=== PATIENT | female | born 1975 | race African-American/Black ===

== ENCOUNTER 2017-12-25 14:53 | Emergency (ER) | payer MEDICAID, OTHER ==
--- NOTE | 2017-12-25 22:13 | Emergency Room Report ---
History of Present Illness General Chief Complaint: To Be Triaged Present Illness HPI Patient left without being seen. Patient History Past Medical History: see triage record Reviewed Nursing Documentation: PMH: Agreed; PSxH: Agreed Review of Systems All Other Systems: negative except mentioned in HPI Medical Decision Making PA Attestation Dr. Suarez is my supervising Physician whom patient management has been discussed with. Diagnostic Impression: Primary Impression: Patient left without being seen ER Course Patient left without being seen. Disposition: LEFT W/OUT BEING SEEN Referrals: NOT APPLICABLE THIS PATIENT,RE (PCP) Spencer Hernandez Dec 25, 2017 22:13
== END 2017-12-25 15:40 | disposition left against medical advice (07) ==
LOC: EMR 15:40
DX: M25.512 Pain in left shoulder (principal); Z53.21 Procedure and treatment not carried out due to patient leaving prior to being seen by health care provider
CPT/HCPCS: 99281

== ENCOUNTER 2018-11-14 14:35 | Emergency (ER) | payer BC, OTHER ==
[~2018-11-14] VITALS: Ht 167.6 cm; Wt 94.3 kg
[2018-11-14 14:43] VITALS: BP 119/80
[2018-11-14] MEDS ORDERED: Albuterol ud Inhalation HHN ONE (15:00)
[2018-11-14] MEDS ORDERED: Ipratropium 0.02% Inh Soln 2.5ml UD HHN ONE (15:00)
--- NOTE | 2018-11-14 15:28 | Emergency Room Report ---
History of Present Illness General Chief Complaint: Asthma Source: Patient Present Illness HPI 43-year-old female presents ED complaining of cough, wheezing 2 days. History of asthma. States cough is dry. Denies fevers chills. [place] Did not get flu shot. Denies sore throat or earache. Denies smoking. No other aggravating relieving factors. Denies any other associated symptoms Allergies: Coded Allergies: BACITRACIN (Unverified Allergy, Unknown, 11/14/18) NEOMYCIN (Unverified Allergy, Unknown, 11/14/18) POLYMYXIN B (Unverified Allergy, Unknown, 11/14/18) Uncoded Allergies: NEOSPORIN (Allergy, Unknown, 11/14/18) Patient History Past Medical History: asthma Past Surgical History: none Pertinent Family History: none Social History: Denies: smoking, alcohol use, drug use Last Menstrual Period: 09/2018 Now: No Immunizations: UTD Reviewed Nursing Documentation: PMH: Agreed; PSxH: Agreed Nursing Documentation-PMH Past Medical History: No History, Except For Hx Asthma: Yes Review of Systems All Other Systems: negative except mentioned in HPI Physical Exam Vital Signs Date Time Temp Pulse Resp B/P (MAP) Pulse Ox O2 Delivery O2 Flow Rate FiO2 11/14/18 14:43 98.2 102 18 119/80 96 Room Air 11/14/18 15:06 21 Sp02 EP Interpretation: reviewed, normal General Appearance: no apparent distress, alert, GCS 15, non-toxic Head: normocephalic, atraumatic Eyes: bilateral eye normal inspection, bilateral eye PERRL ENT: hearing grossly normal, normal pharynx, no angioedema, normal voice Neck: full range of motion, supple/symm/no masses Respiratory: chest non-tender, normal breath sounds, speaking full sentences, wheezing Cardiovascular #1: regular rate, rhythm, no edema Cardiovascular #2: 2+ carotid (R), 2+ carotid (L), 2+ radial (R), 2+ radial (L) , 2+ dorsalis pedis (R), 2+ dorsalis pedis (L) Gastrointestinal: normal bowel sounds, non tender, soft, non-distended, no guarding, no rebound Rectal: deferred Genitourinary: normal inspection, no CVA tenderness Musculoskeletal: back normal, gait/station normal, normal range of motion, non- tender Neurologic: alert, oriented x3, responsive, motor strength/tone normal, sensory intact, speech normal Psychiatric: judgement/insight normal, memory normal, mood/affect normal, no suicidal/homicidal ideation Reflexes: 3+ bicep (R), 3+ bicep (L), 3+ tricep (R), 3+ tricep (L), 3+ knee (R) , 3+ knee (L) Skin: normal color, no rash, warm/dry, well hydrated Lymphatic: no adenopathy Medical Decision Making Diagnostic Impression: Primary Impression: Bronchitis ER Course Hospital Course 43 yo F presents with cough. h/o asthma Differential diagnoses include: URI, bronchitis, asthma/COPD, pneumonia Clinical course Patient placed on stretcher. After initial history and physical I ordered prednisone and nebulizer treatment. Upon reassessment patient states cough and symptoms have improved. Findings consistent with bronchitis. Discussed findings with patient. Courses viral self-limited. Patient states that her inhaler was not helping so she came to the hospital. Patient showed me her inhaler which was Qvar. I explained that this is a steroid inhaler used for control and is not a rescue inhaler. She will need a albuterol inhaler as well. Safe for discharge close outpatient follow-up. PMD is Dr. Oconnor. Engine Lathe Set Up Operator is Dr Mooney Diagnosis - bronchitis Stable and discharged home with prescriptions for Rx Motrin, Zpack, albuterol. Instructed to followup with PMD. Return to ED if symptoms recur or worsen Last Vital Signs Date Time Temp Pulse Resp B/P (MAP) Pulse Ox O2 Delivery O2 Flow Rate FiO2 11/14/18 15:06 77 20 99 Room Air 21 11/14/18 14:43 98.2 119/80 Status: improved Disposition: HOME, SELF-CARE Condition: Stable Scripts D-Methorphan Hb/Prometh Hcl* (PROMETHAZINE-DM SYRUP*) 118 Ml Syrup 5 ML ORAL Q6H PRN for For Cough, #118 ML 0 Refills Prov: Dl Rosales MD 11/14/18 Prednisone* (PREDNISONE*) 20 Mg Tablet 40 MG ORAL DAILY, #10 TAB Prov: Dl Rosales MD 11/14/18 Albuterol Sulfate* (ALBUTEROL SULFATE MDI*) 8.5 Gm Hfa.aer.ad 2 PUFF INH Q6H, #1 EA 0 Refills Prov: Dl Rosales MD 11/14/18 Dl Rosales MD Nov 14, 2018 15:28
[2018-11-14] MEDS ORDERED: PROMETHAZINE-D118 ML ORAL (15:40)
[2018-11-14] MEDS ORDERED: PREDNISONE20 MG ORAL (15:40)
[2018-11-14] MEDS ORDERED: ALBUTEROL SULF8.5 GM INH (15:40)
[2018-11-14 15:43] VITALS: BP 121/71
--- NOTE | 2018-11-14 15:48 | NUR ---
ER DISCHARGE NOTE: Patient is cleared to be discharged per ERMD, pt is aox4, on room air, with stable vital signs. pt was given dc and prescription instructions, pt was able to verbalize understanding, pt id band removed. pt is able to ambulate with steady gait. pt took all belongings.
== END 2018-11-14 15:54 | disposition home or self-care (01) ==
LOC: EMR 15:16
DX: J40 Bronchitis, not specified as acute or chronic (principal); Z88.1 Allergy status to other antibiotic agents; Z88.8 Allergy status to other drugs, medicaments and biological substances; J45.909 Unspecified asthma, uncomplicated
CPT/HCPCS: 94640; 99284; J7512

== ENCOUNTER 2018-12-09 16:05 | Emergency (ER) | payer BC, MEDICAID ==
[~2018-12-09] VITALS: Ht 167.6 cm; Wt 94.3 kg
[~2018-12-09 16:05] MED LIST: ALBUTEROL SULF8.5 GM INH; PREDNISONE20 MG ORAL; PROMETHAZINE-D118 ML ORAL
[2018-12-09 16:20] VITALS: BP 119/80
--- NOTE | 2018-12-09 16:20 | NUR ---
ED Nurse Note: Patient present at ER due to allergic reaction. Pt is taking Keflex 500mg since breasts reduction surgery on 12/05/18 and per pt, reaction started since then. pt aao x4 and general body edema noted. skin warm to touch and flushed. pt c/o itching and general body aching 5/10. pt has 3 incision sites, both breasts and umbilical incision. no s/s of infection noted. sites are clean and intact.
--- NOTE | 2018-12-09 16:30 | NUR ---
ED Nurse Note: Tried to insert IV line and was not able to due to general body edema. notified ERMD.
--- NOTE | 2018-12-09 16:36 | Emergency Room Report ---
History of Present Illness General Chief Complaint: Allergic Reaction Source: Patient Present Illness HPI Patient 43-year-old female presented after increased skin rash and generalized itchiness. Patient had a recent breast reduction surgery on Saturday. She denies any fever. She reports having continued sore throat as well as generalized itchy rash to her trunk and extremities. Patient had been taking oral antibiotics after the surgery. She denies any shortness of breath. Patient has prior history of asthma. She denies any recent steroid use. Patient was noted to have a history of multiple medication allergies Allergies: Coded Allergies: BACITRACIN (Unverified Allergy, Unknown, 11/14/18) CEPHALEXIN (Verified Allergy, Unknown, 12/09/18) NEOMYCIN (Unverified Allergy, Unknown, 11/14/18) POLYMYXIN B (Unverified Allergy, Unknown, 11/14/18) Uncoded Allergies: NEOSPORIN (Allergy, Unknown, 11/14/18) Patient History Past Medical History: see triage record Last Menstrual Period: Now: No Reviewed Nursing Documentation: PMH: Agreed; PSxH: Agreed Nursing Documentation-PMH Past Medical History: No History, Except For Hx Asthma: Yes Review of Systems All Other Systems: negative except mentioned in HPI Physical Exam Vital Signs Date Time Temp Pulse Resp B/P (MAP) Pulse Ox O2 Delivery O2 Flow Rate FiO2 12/09/18 16:16 98.8 108 20 128/79 98 Room Air Sp02 EP Interpretation: reviewed, normal General Appearance: normal inspection, well appearing, no apparent distress, alert, GCS 15, non-toxic, obese Head: atraumatic ENT: normal ENT inspection, hearing grossly normal, normal voice Neck: normal inspection, full range of motion, supple, no bony tend Respiratory: normal inspection, lungs clear, normal breath sounds, no respiratory distress, no retraction, no wheezing Cardiovascular #1: regular rate, rhythm, no edema Gastrointestinal: normal inspection, normal bowel sounds, non tender, soft, no guarding, no hernia Genitourinary: no CVA tenderness Musculoskeletal: normal inspection, back normal, normal range of motion Neurologic: normal inspection, alert, oriented x3, responsive, 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 Last Vital Signs Date Time Temp Pulse Resp B/P (MAP) Pulse Ox O2 Delivery O2 Flow Rate FiO2 12/09/18 16:16 98.8 108 20 128/79 98 Room Air Mt Benjamin MD Dec 09, 2018 16:35
--- NOTE | 2018-12-09 16:40 | NUR ---
ED Nurse Note: Received IM and PO order.
[2018-12-09] MEDS ORDERED: Solu-MEDROL 125mg Inj IVP ONE (16:45)
[2018-12-09] MEDS ORDERED: DiphenhydrAMINE 50mg/ml Inj IVP ONE (16:45)
[2018-12-09] MEDS ORDERED: DiphenhydrAMINE 50mg/ml Inj IM ONE (17:15)
[2018-12-09 18:14] VITALS: BP 137/83
--- NOTE | 2018-12-09 19:11 | NUR ---
HAND-OFF: Report given to Wilfredo Brewer RN. no new order at this moment.
--- NOTE | 2018-12-09 19:21 | NUR ---
ED Nurse Note: Received patient from William Paula RN. Patient AO4 in bed with NAD. Patient requests benadryl reports itching; states someone will pick her up. Notified NATHAN
[2018-12-09] MEDS ORDERED: BENADRYL25 M3 PO (19:45)
[2018-12-09] MEDS ORDERED: PREDNISONE20 MG ORAL (19:45)
[2018-12-09 20:00] VITALS: BP 137/83
--- NOTE | 2018-12-09 20:00 | NUR ---
ER DISCHARGE NOTE: Patient is cleared to be discharged per ERMD, pt is aox4, on room air, with stable vital signs. pt was given dc and prescription instructions, pt was able to verbalize understanding, pt id band and iv site removed without complications. pt is able to ambulate with steady gait. pt took all belongings.
== END 2018-12-09 20:00 | disposition home or self-care (01) ==
LOC: EMR 16:52
DX: R21 Rash and other nonspecific skin eruption (principal); E66.9 Obesity, unspecified; Z68.33 Body mass index [BMI] 33.0-33.9, adult; Z88.8 Allergy status to other drugs, medicaments and biological substances
CPT/HCPCS: 96372; 96374; 99284; J1200; J2930; J7512